=== PATIENT | female | born 1940 | race Caucasian/White ===

== ENCOUNTER 2018-07-25 17:50 | Emergency (ER) | payer MEDICARE ==
[~2018-07-25] VITALS: Ht 165.1 cm; Wt 90.1 kg
[2018-07-25] MEDS ORDERED: AMOX875T (17:57)
[2018-07-25] MEDS ORDERED: GUAI20TA PO (17:58)
[2018-07-25 19:45] LABS: INFLUENZA A AMPLIFICATION NEGATIVE (NEGATIVE); INFLUENZA B AMPLIFICATION NEGATIVE (NEGATIVE)
[2018-07-25] MEDS ORDERED: IPRATROPIUM 0.5MG/ALBUTEROL 2.5MG INH SOL UD 3ML (DUONEB)(J7620) NEB ONE (20:00)
--- NOTE | 2018-07-25 20:30 | REP ---
Chest two views HISTORY: Cough Comparison: None A calcified granuloma is present in the right middle lobe. The left lung is clear. The heart is normal in size. The pulmonary vasculature is normal in appearance. The bony structure is intact. IMPRESSION: No acute disease. Electronically Signed by Lars Sebastian MD 07/25/2018 08:21 P
[2018-07-25] MEDS ORDERED: predniSONE 20 MG TAB PO ONE (20:45)
[2018-07-25] MEDS ORDERED: PRED10TA2 PO (20:57)
[2018-07-25] MEDS ORDERED: VENTAER INH (20:57)
[2018-07-25 21:13] VITALS: BP 126/66
== END 2018-07-25 21:14 | disposition home or self-care (01) ==
LOC: M ED 17:50
DX: J40 Bronchitis, not specified as acute or chronic (principal); Z79.2 Long term (current) use of antibiotics

== ENCOUNTER 2021-05-24 23:47 | Inpatient (IN) | payer MEDICARE ==
[~2021-05-24] VITALS: Ht 165.1 cm; Wt 89.2 kg
[~2021-05-24 23:47] MED LIST: AMOX875T; GUAI20TA PO; PRED10TA2 PO; VENTAER INH
[2021-05-25 00:34] LABS: BASO # 0.1 10^3/uL (0.0-0.2); BASO % 0.3 % (0.0-1.0); EOS % 0.2 % (0.0-3.0); HEMATOCRIT 44.7 % (36.0-47.0); HEMOGLOBIN 14.4 g/dl (12.0-15.5); LYMPH # 2.6 10^3/uL (1.5-5.0); LYMPH % 15.2 % (24.0-44.0); MEAN CORPUSCULAR HEMOGLOBIN 27.9 pg (27.0-33.0); MEAN CORPUSCULAR HGB CONC 32.2 g/dl (32.0-36.5); MEAN CORPUSCULAR VOLUME 86.5 fl (80.0-96.0); MONO # 1.3 10^3/uL (0.0-0.8); MONO % 7.9 % (2.0-8.0); NEUTROPHILS # 12.7 10^3/uL (1.5-8.5); NEUTROPHILS % 75.8 % (36.0-66.0); PLATELET COUNT, AUTOMATED 310 10^3/uL (150-450); RED BLOOD COUNT 5.17 10^6/uL (4.00-5.40); WHITE BLOOD COUNT 16.7 10^3/uL (4.0-10.0)
[2021-05-25 00:58] LABS: ALBUMIN 3.7 GM/DL (3.2-5.2); ALT/SGPT 28 U/L (12-78); BILIRUBIN,DIRECT 0.2 MG/DL (0.0-0.2); BILIRUBIN,TOTAL 0.6 MG/DL (0.2-1.0); BLOOD UREA NITROGEN 13 MG/DL (7-18); CALCIUM LEVEL 9.5 MG/DL (8.8-10.2); CARBON DIOXIDE LEVEL 29 MEQ/L (21-32); CHLORIDE LEVEL 102 MEQ/L (98-107); CREATININE FOR GFR 0.91 MG/DL (0.55-1.30); GLOMERULAR FILTRATION RATE > 60.0 (>32); GLUCOSE, FASTING 153 MG/DL (70-100); LIPASE 32 U/L (73-393); POTASSIUM SERUM 4.5 MEQ/L (3.5-5.1); SODIUM LEVEL 136 MEQ/L (136-145); TOTAL PROTEIN 7.3 GM/DL (6.4-8.2)
[2021-05-25] MEDS ORDERED: MORPHINE 4 MG/ML 1ML VIAL/SYRINGE (J2270) IV ONE (04:50)
[2021-05-25] MEDS ORDERED: ONDANSETRON 4MG/2ML VIAL IV ONE (04:50)
[2021-05-25] MEDS ORDERED: PIPERACILLIN/TAZOBACTAM SOD 4.5 GM in D5W MINI-BAG PLUS 50 ML IV ONE (06:15)
[2021-05-25] MEDS ORDERED: ACETAMINOPHEN TAB 650MG DOSE (2X325MG) PO PRN (07:00)
[2021-05-25] MEDS ORDERED: MOM 30ML SUSPENSION UDC PO PRN (07:00)
[2021-05-25] MEDS ORDERED: MAALOX 30 ML SUSP *UDC PO PRN (07:00)
[2021-05-25] MEDS ORDERED: VITMTA PO (07:09)
[2021-05-25] MEDS ORDERED: ASPI81TA26 PO (07:09)
[2021-05-25] MEDS ORDERED: FISH1000 PO (07:09)
[2021-05-25] MEDS ORDERED: D31000TA2 PO (07:09)
[2021-05-25] MEDS ORDERED: HOME MED LIST COMPLETE! XX SCH (07:10)
[2021-05-25] MEDS ORDERED: ONDANSETRON 4MG/2ML VIAL IV PRN (07:10)
[2021-05-25] MEDS: NS 1,000 ML IV SCH ×3 (08:54→23:00)
[2021-05-25] MEDS: MORPHINE 4 MG/ML 1ML VIAL/SYRINGE (J2270) IV PRN ×2 (08:54→16:17)
[2021-05-25] MEDS ORDERED: PIPERACILLIN/TAZOBACTAM SOD 4.5 GM in D5W MINI-BAG PLUS 50 ML IV SCH (12:00)
[2021-05-25] MEDS ORDERED: LABETALOL 100MG/20ML VIAL IV STA (16:17)
[2021-05-25 17:02] VITALS: BP 149/82
[2021-05-25] MEDS: amLODIPine 5 MG TAB PO SCH (17:05)
[2021-05-25] MEDS: ASPIRIN 81MG ENTERIC TABLET PO SCH (17:06)
[2021-05-25] MEDS: PIPERACILLIN/TAZOBACTAM SOD 4.5 GM in D5W MINI-BAG PLUS 50 ML IV SCH (21:02)
[2021-05-25] MEDS: oxyCODONE 5MG TAB PO PRN (21:03)
[2021-05-25 22:00] VITALS: BP 144/79
[2021-05-26] MEDS: NS 1,000 ML IV SCH ×3 (01:42→21:00)
[2021-05-26] MEDS: oxyCODONE 5MG TAB PO PRN (01:45)
[2021-05-26] MEDS: PIPERACILLIN/TAZOBACTAM SOD 4.5 GM in D5W MINI-BAG PLUS 50 ML IV SCH ×4 (04:04→21:21)
[2021-05-26 06:00] VITALS: BP 142/76
[2021-05-26 06:39] LABS: BASO % 0.2 % (0.0-1.0); EOS % 0.1 % (0.0-3.0); HEMOGLOBIN 12.7 g/dl (12.0-15.5); LYMPH # 2.1 10^3/uL (1.5-5.0); LYMPH % 12.7 % (24.0-44.0); MEAN CORPUSCULAR HEMOGLOBIN 27.9 pg (27.0-33.0); MEAN CORPUSCULAR HGB CONC 32.6 g/dl (32.0-36.5); MEAN CORPUSCULAR VOLUME 85.7 fl (80.0-96.0); MONO % 12.6 % (2.0-8.0); NEUTROPHILS # 12.2 10^3/uL (1.5-8.5); NEUTROPHILS % 73.9 % (36.0-66.0); PLATELET COUNT, AUTOMATED 232 10^3/uL (150-450); RED BLOOD COUNT 4.55 10^6/uL (4.00-5.40); WHITE BLOOD COUNT 16.5 10^3/uL (4.0-10.0)
[2021-05-26 07:09] LABS: ALBUMIN 2.5 GM/DL (3.2-5.2); ALT/SGPT 44 U/L (12-78); BILIRUBIN,TOTAL 1.5 MG/DL (0.2-1.0); BLOOD UREA NITROGEN 14 MG/DL (7-18); CARBON DIOXIDE LEVEL 27 MEQ/L (21-32); CHLORIDE LEVEL 107 MEQ/L (98-107); CREATININE FOR GFR 0.83 MG/DL (0.55-1.30); GLOMERULAR FILTRATION RATE > 60.0 (>32); GLUCOSE, FASTING 130 MG/DL (70-100); MAGNESIUM LEVEL 1.9 MG/DL (1.8-2.4); POTASSIUM SERUM 3.6 MEQ/L (3.5-5.1); SODIUM LEVEL 140 MEQ/L (136-145); TOTAL PROTEIN 6.1 GM/DL (6.4-8.2)
[2021-05-26 07:23] LABS: MONO # 2.1 10^3/uL (0.0-0.8)
[2021-05-26] MEDS: amLODIPine 5 MG TAB PO SCH (09:25)
[2021-05-26] MEDS: ASPIRIN 81MG ENTERIC TABLET PO SCH (09:25)
[2021-05-26] MEDS ORDERED: LIDOCAINE 1% SDV 30ML VIAL As Ordered ONE ×2 (14:46→15:58)
[2021-05-26] MEDS ORDERED: BUPIVACAINE HCL 0.25% 30ML VIAL As Ordered ONE ×2 (14:47→15:56)
[2021-05-26] MEDS ORDERED: LIDOCAINE 2% 100MG/5ML SDV (FOR ANES.) As Ordered ONE ×2 (15:00→16:03)
[2021-05-26] MEDS ORDERED: propofoL 200 MG/20 ML VIAL As Ordered ONE ×2 (15:00→16:03)
[2021-05-26] MEDS ORDERED: ROCURONIUM BROMIDE 50 MG/5 ML VIAL As Ordered ONE ×3 (15:00→18:18)
[2021-05-26] MEDS ORDERED: SUGAMMADEX SODIUM 500 MG/5 ML VIAL (BRIDION) As Ordered ONE ×2 (15:00→16:03)
[2021-05-26] MEDS ORDERED: MIDAZOLAM INJ 2MG/2ML VIAL (J2250 PER 1MG) As Ordered ONE ×2 (15:00→16:04)
[2021-05-26] MEDS ORDERED: dexameTHASONE 4 MG/ML 1ML VIAL (J1100 PER 1MG) As Ordered ONE ×2 (15:00→16:03)
[2021-05-26] MEDS ORDERED: ONDANSETRON 4MG/2ML VIAL As Ordered ONE ×2 (15:00→16:03)
[2021-05-26] MEDS ORDERED: fentaNYL 100 MCG/2 ML INJECTION (J3010) As Ordered ONE ×3 (15:00→17:32)
[2021-05-26] MEDS ORDERED: ZOSYN 3.375GM VIAL As Ordered ONE (15:47)
[2021-05-26] MEDS ORDERED: LIDOCAINE W/EPINEPHRINE 1% 20ML VIAL As Ordered ONE (15:56)
[2021-05-26] MEDS ORDERED: KETOROLAC 60MG 2ML VIAL As Ordered ONE (16:03)
[2021-05-26] MEDS ORDERED: ACETAMINOPHEN 1000MG 100ML IV BTL (OFIRMEV) (J0131 PER 10MG) As Ordered ONE (16:03)
[2021-05-26] MEDS ORDERED: PHENYLephrine 500MCG 5ML (100MCG/ML) SYRINGE As Ordered ONE (16:39)
[2021-05-26] MEDS ORDERED: ePHEDrine SULFATE 25 MG/5 ML(5MG/ML) SYRINGE As Ordered ONE (16:39)
[2021-05-26] MEDS ORDERED: fentaNYL 100 MCG/2 ML INJECTION (J3010) IV PRN (20:10)
[2021-05-26] MEDS ORDERED: PERCOCET 5MG/325MG TAB PO PRN (20:10)
[2021-05-26] MEDS ORDERED: LR 1,000 ML IV SCH (20:10)
[2021-05-26] MEDS ORDERED: ONDANSETRON 4MG/2ML VIAL IV PRN (20:10)
[2021-05-26 20:45] VITALS: BP 123/70
[2021-05-26 21:30] VITALS: BP 119/66
[2021-05-26 22:00] VITALS: BP 111/60
[2021-05-26 23:00] VITALS: BP 109/60
[2021-05-27] VITALS (7 sets, daily range): BP systolic 92–132; BP diastolic 53–74
[2021-05-27] MEDS: NS 1,000 ML IV SCH ×2 (01:00→14:40)
[2021-05-27] MEDS: KETOROLAC 30 MG/ML 1ML VIAL IV SCH ×4 (01:01→19:56)
[2021-05-27] MEDS: PIPERACILLIN/TAZOBACTAM SOD 4.5 GM in D5W MINI-BAG PLUS 50 ML IV SCH ×4 (03:42→21:50)
[2021-05-27 06:09] LABS: BASO % 0.1 % (0.0-1.0); HEMATOCRIT 32.4 % (36.0-47.0); LYMPH # 1.3 10^3/uL (1.5-5.0); LYMPH % 9.5 % (24.0-44.0); MEAN CORPUSCULAR HGB CONC 32.4 g/dl (32.0-36.5); MEAN CORPUSCULAR VOLUME 86.4 fl (80.0-96.0); MONO # 1.2 10^3/uL (0.0-0.8); NEUTROPHILS # 11.1 10^3/uL (1.5-8.5); PLATELET COUNT, AUTOMATED 186 10^3/uL (150-450); RED BLOOD COUNT 3.75 10^6/uL (4.00-5.40); WHITE BLOOD COUNT 13.7 10^3/uL (4.0-10.0)
[2021-05-27 06:17] LABS: HEMOGLOBIN 10.5 g/dl (12.0-15.5)
[2021-05-27 06:36] LABS: ALBUMIN 1.9 GM/DL (3.2-5.2); ALT/SGPT 59 U/L (12-78); BILIRUBIN,TOTAL 0.9 MG/DL (0.2-1.0); BLOOD UREA NITROGEN 18 MG/DL (7-18); CALCIUM LEVEL 7.8 MG/DL (8.8-10.2); CARBON DIOXIDE LEVEL 26 MEQ/L (21-32); CHLORIDE LEVEL 110 MEQ/L (98-107); CREATININE FOR GFR 0.79 MG/DL (0.55-1.30); GLOMERULAR FILTRATION RATE > 60.0 (>32); GLUCOSE, FASTING 143 MG/DL (70-100); MAGNESIUM LEVEL 1.9 MG/DL (1.8-2.4); POTASSIUM SERUM 3.7 MEQ/L (3.5-5.1); SODIUM LEVEL 141 MEQ/L (136-145); TOTAL PROTEIN 5.3 GM/DL (6.4-8.2)
[2021-05-27] MEDS: ALBUTEROL SULFATE 2.5 MG/0.5 ML INH NEB SOLN NEB SCH ×3 (07:51→20:46)
[2021-05-27] MEDS: ASPIRIN 81MG ENTERIC TABLET PO SCH (08:42)
[2021-05-27] MEDS: amLODIPine 5 MG TAB PO SCH (09:00)
[2021-05-28] MEDS: KETOROLAC 30 MG/ML 1ML VIAL IV SCH ×3 (01:45→13:45)
[2021-05-28] MEDS: ALBUTEROL SULFATE 2.5 MG/0.5 ML INH NEB SOLN NEB SCH ×3 (02:00→14:04)
[2021-05-28] MEDS: PIPERACILLIN/TAZOBACTAM SOD 4.5 GM in D5W MINI-BAG PLUS 50 ML IV SCH ×2 (03:50→09:20)
[2021-05-28 06:00] VITALS: BP 119/60
[2021-05-28 07:19] LABS: BASO % 0.5 % (0.0-1.0); EOS # 0.2 10^3/uL (0.0-0.5); EOS % 2.9 % (0.0-3.0); HEMATOCRIT 30.2 % (36.0-47.0); HEMOGLOBIN 9.7 g/dl (12.0-15.5); LYMPH # 2.2 10^3/uL (1.5-5.0); LYMPH % 26.7 % (24.0-44.0); MEAN CORPUSCULAR HEMOGLOBIN 27.9 pg (27.0-33.0); MEAN CORPUSCULAR HGB CONC 32.1 g/dl (32.0-36.5); MEAN CORPUSCULAR VOLUME 86.8 fl (80.0-96.0); MONO # 0.8 10^3/uL (0.0-0.8); MONO % 9.1 % (2.0-8.0); NEUTROPHILS % 60.6 % (36.0-66.0); PLATELET COUNT, AUTOMATED 197 10^3/uL (150-450); RED BLOOD COUNT 3.48 10^6/uL (4.00-5.40); WHITE BLOOD COUNT 8.2 10^3/uL (4.0-10.0)
[2021-05-28 07:47] LABS: ALT/SGPT 46 U/L (12-78); BILIRUBIN,TOTAL 0.6 MG/DL (0.2-1.0); BLOOD UREA NITROGEN 20 MG/DL (7-18); CALCIUM LEVEL 7.9 MG/DL (8.8-10.2); CARBON DIOXIDE LEVEL 27 MEQ/L (21-32); CHLORIDE LEVEL 113 MEQ/L (98-107); CREATININE FOR GFR 0.87 MG/DL (0.55-1.30); GLOMERULAR FILTRATION RATE > 60.0 (>32); GLUCOSE, FASTING 97 MG/DL (70-100); MAGNESIUM LEVEL 2.1 MG/DL (1.8-2.4); POTASSIUM SERUM 3.1 MEQ/L (3.5-5.1); SODIUM LEVEL 144 MEQ/L (136-145); TOTAL PROTEIN 5.3 GM/DL (6.4-8.2)
[2021-05-28] MEDS ORDERED: MORPHINE 2 MG/ML 1ML VIAL (J2270) IV PRN (08:05)
[2021-05-28 08:31] VITALS: BP 122/64
[2021-05-28] MEDS: amLODIPine 5 MG TAB PO SCH (08:31)
[2021-05-28] MEDS: ASPIRIN 81MG ENTERIC TABLET PO SCH (08:31)
[2021-05-28] MEDS ORDERED: POTASSIUM CHLORIDE 10MEQ SR TABLET PO ONE (09:00)
[2021-05-28 10:00] VITALS: BP 119/61
[2021-05-28] MEDS ORDERED: ONDA-83 PO (13:30)
[2021-05-28] MEDS ORDERED: METR-265 PO (13:30)
[2021-05-28] MEDS ORDERED: CIPR500T39 PO (13:30)
[2021-05-28] MEDS ORDERED: ACET1TAB55 PO (13:30)
[2021-05-28] MEDS ORDERED: OXYC-517 PO (13:30)
[2021-05-28 14:00] VITALS: BP 133/73
== END 2021-05-28 14:55 | disposition home or self-care (01) | DRG 418 ==
LOC: M ED 23:47 → M ED INP 05-25 06:58 → M MS5PR 05-25 16:40
PROVIDERS: ADMIT Family Medicine; ATTEND Family Medicine
PROC: 0FT44ZZ Resection of Gallbladder, Percutaneous Endoscopic Approach (ICD-10-PCS; principal; 2021-05-27)
DX: K80.00 Calculus of gallbladder with acute cholecystitis without obstruction (principal); J98.11 Atelectasis; J45.909 Unspecified asthma, uncomplicated; Z79.52 Long term (current) use of systemic steroids; Z79.899 Other long term (current) drug therapy; Z20.822 Contact with and (suspected) exposure to COVID-19; K59.09 Other constipation; R91.8 Other nonspecific abnormal finding of lung field; D64.9 Anemia, unspecified

== ENCOUNTER 2024-01-23 09:25 | Day surgery (SDC) | payer MEDICARE ==
[~2024-01-23] VITALS: Ht 160 cm; Wt 93.3 kg
[~2024-01-23 09:25] MED LIST changes: +ACET1TAB55 PO; +ASPI81TA26 PO; +CIPR500T39 PO; +FISH1000 PO; +METR-265 PO; +MULT-90 PO; +OMEG12002 PO; +ONDA-83 PO; +OXYC-517 PO; +PHENYLEPHRINE 10% OPHTH SOL 5ML OS PRN; +VITA100093 PO; +VITMTA PO; +fentaNYL 100 MCG/2 ML INJECTION As Ordered ONE
[2024-01-23] MEDS: ATROPINE SULFATE 1% OPHTH SOLN 2ML BTL OS SCH (09:44)
[2024-01-23] MEDS: PHENYLEPHRINE 2.5% OPHTH SOL 2ML OS SCH (09:44)
[2024-01-23] MEDS: LIDOCAINE 3.5 % 1ML OPHTH TOPICAL GEL OU ONE (09:44)
[2024-01-23] MEDS: TROPICAMIDE 1% OPHTH SOLN 15ML OS SCH (09:44)
[2024-01-23] MEDS: OFLOXACIN 0.3 % (OCUFLOX) OPTH SOL 5ML OS ONE (09:44)
[2024-01-23] MEDS: LIDOCAINE 1% SDV 5ML VIAL As Ordered ONE (10:23)
[2024-01-23] MEDS: BSS IRRIG/VANCO(10MG)/TOBRA(5MG)/EPINEPH(1:1000-0.5CC)500ML BAG-ORONLY As Ordered ONE (10:24)
[2024-01-23] MEDS ORDERED: MIDAZOLAM INJ 2MG/2ML VIAL As Ordered ONE (10:26)
[2024-01-23] MEDS: CEFUROXIME 1MG/0.1ML INTRACAMERAL INJ As Ordered ONE (10:34)
[2024-01-23 10:39] VITALS: BP 133/64; TEMP 96.9; O2SAT 97
== END 2024-01-23 10:51 | disposition home or self-care (01) ==
LOC: M SDC 09:25
PROVIDERS: ATTEND Ophthalmology
DX: H25.12 Age-related nuclear cataract, left eye (principal); Z79.82 Long term (current) use of aspirin; Z79.899 Other long term (current) drug therapy
CPT/HCPCS: 66984; 92015; J0697; J2250; J3010; V2788

== ENCOUNTER 2024-02-06 09:13 | Day surgery (SDC) | payer MEDICARE ==
[~2024-02-06] VITALS: Ht 165.1 cm; Wt 92.0 kg
[~2024-02-06 09:13] MED LIST changes: +PHENYLEPHRINE 10% OPHTH SOL 5ML OD PRN; -PHENYLEPHRINE 10% OPHTH SOL 5ML OS PRN
[2024-02-06] MEDS: OFLOXACIN 0.3 % (OCUFLOX) OPTH SOL 5ML OD ONE (09:41)
[2024-02-06] MEDS: LIDOCAINE 3.5 % 1ML OPHTH TOPICAL GEL OU ONE (09:41)
[2024-02-06] MEDS: TROPICAMIDE 1% OPHTH SOLN 15ML OD SCH (09:42)
[2024-02-06] MEDS: PHENYLEPHRINE 2.5% OPHTH SOL 2ML OD SCH (09:42)
[2024-02-06] MEDS: ATROPINE SULFATE 1% OPHTH SOLN 2ML BTL OD SCH (09:42)
[2024-02-06] MEDS: CEFUROXIME 1MG/0.1ML INTRACAMERAL INJ As Ordered ONE (09:43)
[2024-02-06] MEDS: LIDOCAINE 1% SDV 5ML VIAL As Ordered ONE (09:43)
[2024-02-06] MEDS: BSS IRRIG/VANCO(10MG)/TOBRA(5MG)/EPINEPH(1:1000-0.5CC)500ML BAG-ORONLY As Ordered ONE (09:43)
[2024-02-06 10:42] VITALS: BP 149/71; TEMP 96.7; O2SAT 99
== END 2024-02-06 11:00 | disposition home or self-care (01) ==
LOC: M SDC 09:13
PROVIDERS: ATTEND Ophthalmology
DX: H25.11 Age-related nuclear cataract, right eye (principal); Z79.82 Long term (current) use of aspirin; E66.9 Obesity, unspecified
CPT/HCPCS: 66984; 92015; J0697; J3010; V2788

== ENCOUNTER → 2024-07-30 | Outpatient (CLI) | payer MEDICARE ==
[~2024-07-30] MED LIST changes: -PHENYLEPHRINE 10% OPHTH SOL 5ML OD PRN; -fentaNYL 100 MCG/2 ML INJECTION As Ordered ONE
[2024-07-30 13:59] LABS: BASO % 0.6 % (0.0-1.0); EOS # 0.2 10^3/uL (0.0-0.5); EOS % 2.6 % (0.0-3.0); HEMATOCRIT 44.6 % (36.0-47.0); HEMOGLOBIN 14.3 g/dl (12.0-15.5); LYMPH # 2.7 10^3/uL (1.5-5.0); LYMPH % 36.5 % (24.0-44.0); MEAN CORPUSCULAR HEMOGLOBIN 27.9 pg (27.0-33.0); MEAN CORPUSCULAR HGB CONC 32.1 g/dl (32.0-36.5); MEAN CORPUSCULAR VOLUME 87.1 fl (80.0-96.0); MONO # 0.9 10^3/uL (0.0-0.8); MONO % 12.3 % (2.0-8.0); NEUTROPHILS # 3.5 10^3/uL (1.5-8.5); NEUTROPHILS % 47.7 % (36.0-66.0); PLATELET COUNT, AUTOMATED 227 10^3/uL (150-450); RED BLOOD COUNT 5.12 10^6/uL (4.00-5.40); WHITE BLOOD COUNT 7.3 10^3/uL (4.0-10.0)
[2024-07-30 14:27] LABS: LIPASE 23 U/L (12-53)
[2024-07-30 14:29] LABS: ALBUMIN 3.4 G/DL (3.2-5.2); ALKALINE PHOSPHATASE 69 U/L (35-104); ALT/SGPT 81 U/L (7.0-40); AST/SGOT 90 U/L (<34); BILIRUBIN,TOTAL 0.5 MG/DL (0.3-1.2); BLOOD UREA NITROGEN 15 MG/DL (9-23); CALCIUM LEVEL 8.8 MG/DL (8.3-10.6); CARBON DIOXIDE LEVEL 27 MMOL/L (20-31); CHLORIDE LEVEL 102 MMOL/L (98-107); CREATININE FOR GFR 0.88 MG/DL (0.55-1.30); GLOMERULAR FILTRATION RATE > 60.0 (>32); GLUCOSE, FASTING 92 MG/DL (74-106); POTASSIUM SERUM 4.1 MMOL/L (3.5-5.1); SODIUM LEVEL 140 MMOL/L (136-145); TOTAL PROTEIN 6.7 G/DL (5.7-8.2)
== END ==
LOC: M WUC 10:43
PROVIDERS: ATTEND Student in an Organized Health Care Education/Training Program
DX: R11.2 Nausea with vomiting, unspecified (principal)

== ENCOUNTER 2024-09-25 14:41 | Emergency (ER) | payer MEDICARE ==
[~2024-09-25] VITALS: Ht 165.1 cm; Wt 94.5 kg
[2024-09-25 15:15] VITALS: TEMP 97.4
[2024-09-25 20:34] VITALS: BP 134/75; O2SAT 99
== END 2024-09-25 20:35 | disposition home or self-care (01) ==
LOC: M ED 14:41
DX: S89.92XA Unspecified injury of left lower leg, initial encounter (principal); X58.XXXA Exposure to other specified factors, initial encounter; Y92.007 Garden or yard of unspecified non-institutional (private) residence as the place of occurrence of the external cause; Y93.H2 Activity, gardening and landscaping; Y99.9 Unspecified external cause status; Z79.82 Long term (current) use of aspirin; Z79.899 Other long term (current) drug therapy